=== PATIENT | female | born 1965 ===

== ENCOUNTER 2017-11-10 07:34 | Day surgery (SDC) | payer MEDICAID ==
[2017-11-10] MEDS ORDERED: Lactated Ringer's 500 ML IV ONE (07:59)
[2017-11-10 08:23] VITALS: BMI 24.1
[2017-11-10 08:34] VITALS: TEMP 98.6
[2017-11-10] MEDS ORDERED: Midazolam 2 MG/2 ML VIAL ONE (09:23)
[2017-11-10] MEDS ORDERED: Propofol 10 mg/ml Inj (20 ML) ONE (09:24)
[2017-11-10 10:10] VITALS: BP 110/70; PULSE 82; RESP 16; O2SAT 99
== END 2017-11-10 13:36 | disposition home or self-care (01) ==
LOC: H.ENDO 07:34
PROVIDERS: ATTEND Internal Medicine Gastroenterology
DX: Z12.11 Encounter for screening for malignant neoplasm of colon (principal); I10 Essential (primary) hypertension; K64.0 First degree hemorrhoids
CPT/HCPCS: 45378; J2001; J2250; J2704; J7120